=== PATIENT | female | born 1995 | race Caucasian/White ===

== ENCOUNTER 2020-07-28 23:55 | Emergency (ER) | payer OTHER ==
[~2020-07-28] VITALS: Ht 162.6 cm; Wt 62.6 kg
[2020-07-29 00:02] VITALS: BP 119/60
--- NOTE | 2020-07-29 00:05 | NUR ---
TO LOBBY A/W BED AMBULATORY
--- NOTE | 2020-07-29 01:42 | NUR ---
PATIENT AMBULATORY TO BED #3
--- NOTE | 2020-07-29 01:45 | NUR ---
SEE COMPLETE ASSESSMENT
--- NOTE | 2020-07-29 01:48 | NUR ---
Dr. Long examining patient.
[2020-07-29] MEDS ORDERED: KETOROLAC 30 MG/ML VIAL IM ONE (01:50)
[2020-07-29] MEDS ORDERED: PHENAZOPYRIDINE 100 MG TAB PO ONE (01:50)
[2020-07-29 01:59] LABS: APPEARANCE,URINE CLEAR (CLEAR); BILIRUBIN,URINE NEGATIVE (NEGATIVE); BLOOD, URINE NEGATIVE (NEGATIVE); COLOR,URINE YELLOW (YELLOW); LEUKOCYTE ESTERASE ,URINE 1+ (NEGATIVE); NITRITE, URINE NEGATIVE (NEGATIVE); PH,URINE 6.5 (5.0-9.0); UGLUCOSE NEGATIVE (NEGATIVE)
[2020-07-29 02:06] LABS: RBC,URINE 0-5 /HPF (0-5)
[2020-07-29] MEDS ORDERED: PYR100 PO (02:10)
[2020-07-29] MEDS ORDERED: NITR100C7 PO (02:10)
[2020-07-29] MEDS ORDERED: NAPR-54 PO (02:11)
--- NOTE | 2020-07-29 02:30 | NUR ---
Patient discharged with v/s stable. Written and verbal after care instructions given and explained. Patient alert, oriented and verbalized understanding of instructions. Ambulatory with steady gait. All questions addressed prior to discharge. ID band removed. Patient advised to follow up with PMD. Rx of NAPROXEN, MACROBID 100MG CAP, PYRIDIUM given. Patient educated on indication of medication including possible reaction and side effects. Opportunity to ask questions provided and answered.
[2020-07-29 02:31] VITALS: BP 111/66
== END 2020-07-29 02:30 | disposition home or self-care (01) ==
LOC: EDBD 23:55 → MED 23:55
DX: N39.0 Urinary tract infection, site not specified (principal)
CPT/HCPCS: 81001; 81025; 87086; 96372; 99283; J1885; 81002

== ENCOUNTER 2020-08-09 22:17 | Emergency (ER) | payer OTHER ==
[~2020-08-09] VITALS: Ht 162.6 cm; Wt 59.0 kg
[~2020-08-09 22:17] MED LIST: NAPR-54 PO; NITR100C7 PO; PYR100 PO
[2020-08-09 22:26] VITALS: BP 108/64
--- NOTE | 2020-08-09 22:26 | NUR ---
TO BED AMBULATORY
--- NOTE | 2020-08-09 22:35 | NUR ---
URINE SAMPLE COLLECTED AND HANED TO STEFAN LITTLEJOHN FOR URINE DIP AND HCG TEST.
--- NOTE | 2020-08-09 22:49 | NUR ---
PT AMBULATED TO RESTROOM W/ STEADY GAIT.
--- NOTE | 2020-08-09 22:52 | NUR ---
ERMD AT BEDSIDE FOR MEDICAL EVALUATION.
[2020-08-09] MEDS ORDERED: KETOROLAC 60 MG/2 ML VIAL IM ONE (23:00)
--- NOTE | 2020-08-09 23:05 | NUR ---
SELF ADMINISTERED WET MOUNT COMPLETED BY PT- COLLECTED AND HANDED TO KIRSTEN FROM LAB.
[2020-08-09 23:08] LABS: APPEARANCE,URINE CLEAR (CLEAR); BILIRUBIN,URINE NEGATIVE (NEGATIVE); BLOOD, URINE 1+ (NEGATIVE); COLOR,URINE YELLOW (YELLOW); LEUKOCYTE ESTERASE ,URINE 1+ (NEGATIVE); NITRITE, URINE NEGATIVE (NEGATIVE); PH,URINE 6.5 (5.0-9.0); UGLUCOSE NEGATIVE (NEGATIVE)
[2020-08-09 23:16] LABS: RBC,URINE 0-5 /HPF (0-5)
--- NOTE | 2020-08-09 23:39 | NUR ---
PT REQUESTING MEDICATION FOR DISCOMFORT WHILE URINATING, RON MADE AWARE.
[2020-08-09] MEDS ORDERED: PHENAZOPYRIDINE 100 MG TAB PO ONE (23:45)
[2020-08-09] MEDS ORDERED: ACETAMINOPHEN EXTRA STRENGTH 500 MG TAB PO ONE (23:45)
--- NOTE | 2020-08-09 23:50 | NUR ---
LAB AT BEDSIDE.
[2020-08-10] LABS: BASOPHILS % (AUTO) 0.2 % (0.0-2.0); EOSINOPHILS % (AUTO) 0.3 % (0.0-4.0); HEMATOCRIT 35.7 % (36-48); HEMOGLOBIN 11.9 g/dL (12.0-16.0); LYMPHOCYTES # (AUTO) 1.7 K/uL (2.5-16.5); LYMPHOCYTES % (AUTO) 17.1 % (20.5-51.1); MEAN CORPUSCULAR HEMOGLOBIN 27 pg (27-31); MEAN CORPUSCULAR HGB CONC 33 g/dL (33-37); MEAN CORPUSCULAR VOLUME 80.8 fL (80-94); MONOCYTES # (AUTO) 0.6 K/uL (0.8-1.0); MONOCYTES % (AUTO) 6.3 % (1.7-9.3); NEUTROPHILS # (AUTO) 7.6 K/uL (1.8-7.7); NEUTROPHILS % (AUTO) 76.1 % (42.2-75.2); PLATELET COUNT (AUTO) 193 K/uL (140-450); RED BLOOD CELL COUNT(AUTO) 4.41 MIL/uL (4.20-5.40); RED CELL DISTRIBUTION WIDTH 14.6 % (11.6-13.7)
[2020-08-10 00:09] LABS: ANION GAP 13.7 (8-16); CREATININE 0.6 mg/dL (0.6-1.3); POTASSIUM 3.7 mmol/L (3.5-5.1)
[2020-08-10 00:14] LABS: ALBUMIN 4.3 g/dL (3.4-5.0); TOTAL BILIRUBIN 0.4 mg/dL (0.0-1.0)
--- NOTE | 2020-08-10 00:32 | NUR ---
ULTRASOUND AT BEDSIDE.
[2020-08-10 00:38] VITALS: BP 111/67
[2020-08-10] MEDS ORDERED: metroNIDAZOLE 250 MG TAB PO ONE (00:45)
--- NOTE | 2020-08-10 00:53 | NUR ---
PT C/O OF NAUSEA AND FEELING LIKE SHE NEEDS TO VOMIT. EMESIS BAG PROVIDED AND ERMD MADE AWARE.
[2020-08-10] MEDS ORDERED: ONDANSETRON 4 MG ODT PO ONE (00:55)
[2020-08-10] MEDS ORDERED: ONDANSETRON 4 MG ODT ONE (00:57)
[2020-08-10] MEDS ORDERED: METR500T1 PO (02:03)
--- NOTE | 2020-08-10 02:15 | NUR ---
Patient discharged with v/s stable. Written and verbal after care instructions given and explained. Patient alert, oriented and verbalized understanding of instructions. Ambulatory with steady gait. All questions addressed prior to discharge. ID band removed. Patient advised to follow up with PMD. Rx of FLAGYL given. Patient educated on indication of medication including possible reaction and side effects. Opportunity to ask questions provided and answered.
== END 2020-08-10 02:15 | disposition home or self-care (01) ==
LOC: MED 22:17
DX: N77.1 Vaginitis, vulvitis and vulvovaginitis in diseases classified elsewhere (principal); J45.909 Unspecified asthma, uncomplicated
CPT/HCPCS: 36415; 76856; 80053; 81001; 81025; 85025; 87086; 87210; 87491; 93976; 96372; 99284; J1885; Q0162

== ENCOUNTER 2020-10-04 20:33 | Emergency (ER) | payer OTHER ==
[~2020-10-04] VITALS: Ht 160 cm; Wt 59.0 kg
[~2020-10-04 20:33] MED LIST changes: +METR500T1 PO
[2020-10-04 20:40] VITALS: BP 111/70
--- NOTE | 2020-10-04 20:40 | NUR ---
TO BED AMBULATORY
--- NOTE | 2020-10-04 21:05 | NUR ---
MOVED TO BED #9
[2020-10-04 21:43] LABS: BASOPHILS % (AUTO) 0.2 % (0.0-2.0); EOSINOPHILS # (AUTO) 0.1 K/uL (0-0.4); EOSINOPHILS % (AUTO) 0.8 % (0.0-4.0); HEMOGLOBIN 12.7 g/dL (12.0-16.0); LYMPHOCYTES # (AUTO) 2.3 K/uL (2.5-16.5); LYMPHOCYTES % (AUTO) 35.4 % (20.5-51.1); MEAN CORPUSCULAR HEMOGLOBIN 27 pg (27-31); MEAN CORPUSCULAR HGB CONC 33 g/dL (33-37); MEAN CORPUSCULAR VOLUME 81.7 fL (80-94); MONOCYTES # (AUTO) 0.6 K/uL (0.8-1.0); MONOCYTES % (AUTO) 9.2 % (1.7-9.3); NEUTROPHILS # (AUTO) 3.5 K/uL (1.8-7.7); NEUTROPHILS % (AUTO) 54.4 % (42.2-75.2); PLATELET COUNT (AUTO) 212 K/uL (140-450); RED BLOOD CELL COUNT(AUTO) 4.65 MIL/uL (4.20-5.40); RED CELL DISTRIBUTION WIDTH 14.2 % (11.6-13.7); WHITE BLOOD COUNT (AUTO) 6.4 K/uL (4.8-10.8)
[2020-10-04 21:51] LABS: APPEARANCE,URINE CLEAR (CLEAR); BILIRUBIN,URINE NEGATIVE (NEGATIVE); BLOOD, URINE 3+ (NEGATIVE); LEUKOCYTE ESTERASE ,URINE NEGATIVE (NEGATIVE); NITRITE, URINE NEGATIVE (NEGATIVE); PH,URINE 6.5 (5.0-9.0); UGLUCOSE NEGATIVE (NEGATIVE)
[2020-10-04 22:02] LABS: COLOR,URINE STRAW (YELLOW)
[2020-10-04 22:03] LABS: RBC,URINE 11-20 (MOD) /HPF (0-5); WBC,URINE 0-5 /HPF (0-5)
--- NOTE | 2020-10-04 23:05 | NUR ---
Dr. Li with pt for MSE
[2020-10-04] MEDS ORDERED: ACETAMINOPHEN EXTRA STRENGTH 500 MG TAB PO ONE (23:10)
[2020-10-04 23:15] VITALS: BP 97/53
--- NOTE | 2020-10-04 23:15 | NUR ---
NAD at this time.
--- NOTE | 2020-10-05 00:03 | NUR ---
d/c with VSS. d/c education given to pt. opportunity to ask questions given and answered. no r x given. copy labs and diagnostic results given to pt
== END 2020-10-05 00:03 | disposition home or self-care (01) ==
LOC: MED 20:33
DX: O20.0 Threatened abortion (principal); J45.909 Unspecified asthma, uncomplicated; Z3A.01 Less than 8 weeks gestation of pregnancy
CPT/HCPCS: 36415; 76817; 81001; 84702; 85025; 86900; 86901; 87086; 99284

== ENCOUNTER 2022-12-18 11:52 | Emergency (ER) | payer OTHER ==
[~2022-12-18] VITALS: Ht 154.9 cm; Wt 65.8 kg
[2022-12-18 12:07] VITALS: BP 116/68; PULSE 84; RESP 16; O2SAT 98
[2022-12-18] MEDS ORDERED: ACET-8905 PO (13:40)
[2022-12-18] MEDS ORDERED: LID5T TP (13:40)
[2022-12-18] MEDS ORDERED: NAPR-54 PO (13:40)
[2022-12-18] MEDS ORDERED: CEPH-588 PO (13:54)
[2022-12-18] MEDS ORDERED: IBUP-2213 PO (13:54)
[2022-12-18] MEDS ORDERED: SULF-59 PO (13:54)
[2022-12-18] MEDS ORDERED: IBUPROFEN 600 MG TAB PO SCH (13:55)
[2022-12-18] MEDS ORDERED: IBUPROFEN 600 MG TAB ONE (14:09)
[2022-12-18] MEDS ORDERED: IBUPROFEN 600 MG TAB PO ONE (14:10)
[2022-12-18 14:15] VITALS: BP 116/68; PULSE 84; RESP 16; TEMP 98.2; O2SAT 98
== END 2022-12-18 14:17 | disposition home or self-care (01) ==
LOC: MED 11:52
DX: N61.0 Mastitis without abscess (principal); J45.909 Unspecified asthma, uncomplicated; Z79.899 Other long term (current) drug therapy
CPT/HCPCS: 99284